=== PATIENT | female | born 1960 | race Caucasian/White ===

== ENCOUNTER 2022-02-12 01:51 | Inpatient (IN) ==
[2022-02-12] MEDS ORDERED: NARCAN IVP STA (01:55)
[2022-02-12 01:59] VITALS: BP 199/112; TEMP 97.7
[2022-02-12 02:05] LABS: BASOPHILS # (AUTO) 0.1 K/uL (0-0.2); BASOPHILS % (AUTO) 0.6 % (0.0-3.0); EOSINOPHILS % (AUTO) 0.1 % (0.0-7.0); HEMATOCRIT 43.8 % (37.0-47.0); HEMOGLOBIN 15.6 g/dl (12.0-16.0); IMMATURE GRANULOCYTE # (AUTO) 0.3 (0.0-1.0); IMMATURE GRANULOCYTE % (AUTO) 1.6 % (0.0-5.0); LYMPHOCYTES % (AUTO) 19.1 (10.0-50.0); MEAN CORPUSCULAR HEMOGLOBIN 29.9 pg (27.0-31.0); MEAN CORPUSCULAR HGB CONC 35.6 (31.8-35.4); MEAN CORPUSCULAR VOLUME 84.1 fl (81.0-99.0); MONOCYTES # (AUTO) 0.6 K/uL (0.4-2.0); MONOCYTES % (AUTO) 3.6 (0-10); NEUTROPHILS # (AUTO) 11.6 K/ul (2.0-6.9); PLATELET COUNT 261 10^3/uL (140-440); RDW COEFFICIENT OF VARIATION 13.2 % (11.6-14.8); RED BLOOD COUNT 5.21 10^6/ul (4.20-5.40); WHITE BLOOD COUNT 15.48 K/ul (4.6-10.2)
[2022-02-12 02:10] LABS: ALANINE AMINOTRANSFERASE 13.2 U/L (0-35); ALBUMIN 5.05 g/dL (3.5-5.0); ALKALINE PHOSPHATASE 115.1 U/L (53-141); ASPARTATE AMINO TRANSFERASE 29.7 U/L (14-36); BLOOD UREA NITROGEN 12.1 mg/dL (7-17); CALCIUM 8.94 mg/dL (8.4-10.2); CARBON DIOXIDE 27.7 mmol/L (22-30.0); CHLORIDE 96.9 mmol/L (98-107); CREATINE KINASE 130.8 U/L (30-135); CREATININE 0.56 mg/dL (0.60-1.30); GLUCOSE 116.6 mg/dL (74-106); POTASSIUM 3.24 mmol/L (3.5-5.1); SODIUM 136.3 mmol/L (134.5-145); TOTAL PROTEIN 8.76 g/dL (6.3-8.2)
--- NOTE | 2022-02-12 02:14 | ED.PDOC ---
General ED Provider: Dr. LYNNETTE HERNANDEZ Chief Complaint: Non-specific Complaint Stated Complaint: family reported a headache and then became unresponsive Time Seen by Provider: 02/12/22 01:53 Mode of Arrival: Ambulance Information Source: EMT Exam Limitations: Clinical condition and Altered mental status Nursing and Triage Documentation Reviewed and Agree: Yes Does patient meet sepsis criteria?: No System Inflammatory Response Syndrome: Not Applicable Sepsis Protocol: For patient's 13 years and over: Temp is 96.8 and below OR 101 and greater Pulse >90 BPM Resp >20/minute Acutely Altered Mental Status Are patient's symptoms suggestive of a new infection, such as: -Pneumonia -Skin, Soft Tissue -Endocarditis -UTI -Bone, Joint Infection -Implantable Device -Acute Abdominal Infection -Wound Infection -Meningitis -Blood Stream Catheter Infection -Unknown Neurological Complaint Exam Altered Mental Status Complaint/Exam Current Mental Status: Unresponsiveness Onset: Sudden Symptoms Are: Still present Timing: Constant Episodes Lasting: Minutes Initial Severity: Mild Current Severity: Severe Eye Deviation Present: No Character: Reports Responsiveness and Lethargy Aggravating: Reports None Alleviating: Reports None Associated Signs and Symptoms: Reports Headache Cardiac Risk Factors: Reports None Carotid Bruit Present: No Nystagmus Present: No Gag Reflex Present: No Meningeal Signs Positive: No Focal Weakness: Present None Focal Sensory Loss: Present None Gait: Unable Heel to Toe Normal: No Signs of Injury: Present Normal findings Thrombolytics Considered: No Differential Diagnoses: Intracranial Bleed and CVA Review of Systems Review Of Systems Constitutional: Reports No symptoms Eyes: Reports No symptoms Ears, Nose, Mouth, Throat: Reports No symptoms Respiratory: Reports No symptoms Cardiac: Reports No symptoms GI: Reports No symptoms : Reports No symptoms Musculoskeletal: Reports No symptoms Skin: Reports No symptoms Neurological: Reports Cognitive dysfunction, Unable to move lower ext and Unable to move upper ext Endocrine: Reports No symptoms Hematologic/Lymphatic: Reports No symptoms All Other Systems: Reviewed and Negative Physical Exam Physical Exam Appearance: Reports Other Ill-appearing: Moderate Pain Distress: None Eyes: Reports Right pupil size and Left pupil size ENT: Reports Ears normal, Nose normal and Oropharynx normal Neck: Supple Respiratory: Reports Airway patent, Breath sounds clear and Breath sounds equal Cardiovascular: Reports RRR, Pulses normal, No rub and No murmur GI/: Reports Soft, Nontender and No masses Musculoskeletal: Reports Not Examined Skin: Reports Warm, Dry and Normal color Neurological: Reports Unresponsive Psychiatric: Reports Not Examined Interpretation Radiology Interpretation Radiology Interpretation By: Radiologist Radiology Results: Positive Exam Interpreted: CT Scan Procedures Intubation Indication: Present Altered Mental Status and Airway Protection Time of Intubation: 02:07 Type of Tube Used: Endotracheal Tube Size: 7.0 Cricoid Pressure Used: Yes Tube Burk Used: Yes Number of Attempts: 3 Suction Used: Yes Glidescope Used: Yes CO2 Detector Used: Yes Lung Sounds Equal Bilaterally: Yes Intubation Complications: Present No complications Tube Inserted By: r wientes Tube Placement Verified by X-ray: Yes Critical Care Note Critical Care Note Total Critical Care Time (mins): 30 Course Course Hematology/Chemistry: 02/12/22 01:50 02/12/22 01:50 Orders, Labs, Meds: Lab Review 02/12/22 02/12/22 02/12/22 01:50 01:50 01:50 WBC 15.48 H RBC 5.21 Hgb 15.6 Hct 43.8 MCV 84.1 MCH 29.9 MCHC 35.6 H RDW Coeff of Hermilo 13.2 Plt Count 261 Immature Gran % (Auto) 1.6 Neut % (Auto) 75.0 Lymph % (Auto) 19.1 [place] % (Auto) 3.6 Eos % (Auto) 0.1 Baso % (Auto) 0.6 Neut # (Auto) 11.6 H Lymph # (Auto) 3.0 [place] # (Auto) 0.6 Eos # (Auto) 0.0 Baso # (Auto) 0.1 Immature Gran # (Auto) 0.3 PT 11.1 H INR 1.07 Puncture Site Base Excess O2 Saturation ABG pH ABG pCO2 ABG pO2 ABG HCO3 ABG Total CO2 Yan Test Hemoglobin Oxyhemoglobin Carboxyhemoglobin Total Hemoglobin O2 Delivery Device Oxygen Liter Flow FiO2 % Sodium 136.3 Potassium 3.24 L Chloride 96.9 L Carbon Dioxide 27.7 Anion Gap 14.94 BUN 12.1 Creatinine 0.56 L Estimated GFR (MDRD) 110.00 BUN/Creatinine Ratio 21.60 Glucose 116.6 H Calcium 8.94 Total Bilirubin 1.20 AST 29.7 ALT 13.2 Alkaline Phosphatase 115.1 Total Creatine Kinase 130.8 CK-MB (CK-2) 3.030 H CK-MB (CK-2) % 2.3100 Troponin I < 0.012 Total Protein 8.76 H Albumin 5.05 H Globulin 3.71 Albumin/Globulin Ratio 1.36 Urine Color Urine Clarity Urine pH Ur Specific Reeves Urine Protein Urine Glucose (UA) Urine Ketones Urine Blood Urine Nitrite Urine Bilirubin Urine Urobilinogen Ur Leukocyte Esterase Urine Microscopic RBC Ur Squamous Epith Cells Amorphous Sediment Urine Bacteria Urine Opiates Screen Ur Oxycodone Screen Urine Methadone Screen Ur Propoxyphene Screen Ur Barbiturates Screen U Tricyclic Antidepress Ur Phencyclidine Scrn Ur Amphetamine Screen U Methamphetamines Scrn U Benzodiazepines Scrn Urine Cocaine Screen U Cannabinoids Screen Adenovirus (PCR) B. pertussis DNA (PCR) B.parapertussis DNA PCR C. pneumoniae DNA (PCR) Coronavirus OC43 (PCR) Coronavirus HKU1 (PCR) Coronavirus 229E (PCR) Coronavirus NL63 (PCR) Human Metapneumovir PCR Influenza Type A (PCR) Influenza B (RT-PCR) M. pneumoniae (PCR) Parainfluenza 1 (PCR) Parainfluenza 2 (PCR) Parainfluenza 3 (PCR) Parainfluenza 4 (PCR) RSV (PCR) Entero/Rhino (PCR) SARS-CoV-2 (PCR) 02/12/22 02/12/22 02/12/22 02:15 02:50 03:20 WBC RBC Hgb Hct MCV MCH MCHC RDW Coeff of Hermilo Plt Count Immature Gran % (Auto) Neut % (Auto) Lymph % (Auto) [place] % (Auto) Eos % (Auto) Baso % (Auto) Neut # (Auto) Lymph # (Auto) [place] # (Auto) Eos # (Auto) Baso # (Auto) Immature Gran # (Auto) PT INR Puncture Site Rb Base Excess -1.6 O2 Saturation 100.0 H ABG pH 7.33 L ABG pCO2 46.0 H ABG pO2 503.0 H ABG HCO3 24.3 ABG Total CO2 25.7 H Yan Test + Hemoglobin 1.5 Oxyhemoglobin 94.9 L Carboxyhemoglobin 3.8 H Total Hemoglobin 16.1 O2 Delivery Device Ambu Oxygen Liter Flow 15.00 FiO2 % 100.0 Sodium Potassium Chloride Carbon Dioxide Anion Gap BUN Creatinine Estimated GFR (MDRD) BUN/Creatinine Ratio Glucose Calcium Total Bilirubin AST ALT Alkaline Phosphatase Total Creatine Kinase CK-MB (CK-2) CK-MB (CK-2) % Troponin I Total Protein Albumin Globulin Albumin/Globulin Ratio Urine Color Yellow Urine Clarity Slightly Urine pH 7.5 Ur Specific Reeves 1.020 Urine Protein Trace H Urine Glucose (UA) Negative Urine Ketones Negative Urine Blood 3+ H Urine Nitrite Negative Urine Bilirubin Negative Urine Urobilinogen 0.2 Ur Leukocyte Esterase Negative Urine Microscopic RBC 10-20 Ur Squamous Epith Cells Not present Amorphous Sediment Trace Urine Bacteria 3+ Urine Opiates Screen Ur Oxycodone Screen Urine Methadone Screen Ur Propoxyphene Screen Ur Barbiturates Screen U Tricyclic Antidepress Ur Phencyclidine Scrn Ur Amphetamine Screen U Methamphetamines Scrn U Benzodiazepines Scrn Urine Cocaine Screen U Cannabinoids Screen Adenovirus (PCR) Not detected B. pertussis DNA (PCR) Not detected B.parapertussis DNA PCR Not detected C. pneumoniae DNA (PCR) Not detected Coronavirus OC43 (PCR) Not detected Coronavirus HKU1 (PCR) Not detected Coronavirus 229E (PCR) Not detected Coronavirus NL63 (PCR) Not detected Human Metapneumovir PCR Not detected Influenza Type A (PCR) Not detected Influenza B (RT-PCR) Not detected M. pneumoniae (PCR) Not detected Parainfluenza 1 (PCR) Not detected Parainfluenza 2 (PCR) Not detected Parainfluenza 3 (PCR) Not detected Parainfluenza 4 (PCR) Not detected RSV (PCR) Not detected Entero/Rhino (PCR) Not detected SARS-CoV-2 (PCR) Not detected 02/12/22 03:20 WBC RBC Hgb Hct MCV MCH MCHC RDW Coeff of Hermilo Plt Count Immature Gran % (Auto) Neut % (Auto) Lymph % (Auto) [place] % (Auto) Eos % (Auto) Baso % (Auto) Neut # (Auto) Lymph # (Auto) [place] # (Auto) Eos # (Auto) Baso # (Auto) Immature Gran # (Auto) PT INR Puncture Site Base Excess O2 Saturation ABG pH ABG pCO2 ABG pO2 ABG HCO3 ABG Total CO2 Yan Test Hemoglobin Oxyhemoglobin Carboxyhemoglobin Total Hemoglobin O2 Delivery Device Oxygen Liter Flow FiO2 % Sodium Potassium Chloride Carbon Dioxide Anion Gap BUN Creatinine Estimated GFR (MDRD) BUN/Creatinine Ratio Glucose Calcium Total Bilirubin AST ALT Alkaline Phosphatase Total Creatine Kinase CK-MB (CK-2) CK-MB (CK-2) % Troponin I Total Protein Albumin Globulin Albumin/Globulin Ratio Urine Color Urine Clarity Urine pH Ur Specific Reeves Urine Protein Urine Glucose (UA) Urine Ketones Urine Blood Urine Nitrite Urine Bilirubin Urine Urobilinogen Ur Leukocyte Esterase Urine Microscopic RBC Ur Squamous Epith Cells Amorphous Sediment Urine Bacteria Urine Opiates Screen Negative Ur Oxycodone Screen Negative Urine Methadone Screen Negative Ur Propoxyphene Screen Negative Ur Barbiturates Screen Negative U Tricyclic Antidepress Negative Ur Phencyclidine Scrn Negative Ur Amphetamine Screen Positive H U Methamphetamines Scrn Positive H U Benzodiazepines Scrn Negative Urine Cocaine Screen Negative U Cannabinoids Screen Negative Adenovirus (PCR) B. pertussis DNA (PCR) B.parapertussis DNA PCR C. pneumoniae DNA (PCR) Coronavirus OC43 (PCR) Coronavirus HKU1 (PCR) Coronavirus 229E (PCR) Coronavirus NL63 (PCR) Human Metapneumovir PCR Influenza Type A (PCR) Influenza B (RT-PCR) M. pneumoniae (PCR) Parainfluenza 1 (PCR) Parainfluenza 2 (PCR) Parainfluenza 3 (PCR) Parainfluenza 4 (PCR) RSV (PCR) Entero/Rhino (PCR) SARS-CoV-2 (PCR) Orders Category Date Time Status ABG DRAW REQUEST DAILY@0600 CARDIO 02/13/22 06:00 Ordered ABG DRAW REQUEST DAILY@0600 CARDIO 02/14/22 06:00 Ordered ABG DRAW REQUEST DAILY@0600 CARDIO 02/15/22 06:00 Ordered ABG DRAW REQUEST Stat CARDIO 02/12/22 02:17 Completed SPUTUM INDUCTION Q3D CARDIO 02/15/22 06:00 Ordered SPUTUM INDUCTION Q3D CARDIO 02/18/22 06:00 Ordered SPUTUM INDUCTION Routine CARDIO 02/12/22 23:59 Ordered VENTILATOR Routine CARDIO 02/12/22 02:38 Ordered ED IV/MEDIPORT/POWERPORT .ONCE EMERGENCY 02/12/22 01:53 Active Delarosa [ED CATHETER INSERTION AND CARE] .ONCE EMERGENCY 02/12/22 02:29 Active ABG COOX DAILY@0600 LAB 02/12/22 06:00 Ordered ABG COOX DAILY@0600 LAB 02/13/22 06:00 Ordered ABG COOX DAILY@0600 LAB 02/14/22 06:00 Ordered ABG COOX DAILY@0600 LAB 02/15/22 06:00 Ordered ABG COOX Stat LAB 02/12/22 02:15 Completed ABG COOX Stat LAB 02/12/22 23:59 Ordered CBC W/ AUTO DIFF Stat LAB 02/12/22 01:50 Completed CMP [COMPREHENSIVE METABOLIC PANEL] Stat LAB 02/12/22 01:50 Completed CREATINE KINASE Stat LAB 02/12/22 01:50 Completed PT WITH INR Stat LAB 02/12/22 01:50 Completed RESPIRATORY PANEL 2.1 (PCR) Stat LAB 02/12/22 02:50 Completed SPUTUM CULTURE Q3D LAB 02/15/22 06:00 Ordered SPUTUM CULTURE Q3D LAB 02/18/22 06:00 Ordered SPUTUM CULTURE Routine LAB 02/12/22 02:38 Ordered TROPONIN I Stat LAB 02/12/22 01:50 Completed URINALYSIS C & S IF INDICATED Stat LAB 02/12/22 03:20 Completed URINE CULTURE Stat LAB 02/12/22 03:20 Received URINE DRUG SCREEN (RAPID FOR ED) [DRUG SCREEN, URINE, LAB 02/12/22 03:20 Completed RAPID] Stat 0.9 % Sodium Chloride [Saline Flush] MEDS 02/12/22 01:53 Active 1 syr IVF PRN PRN Lidocaine (Uro-Jet) [Uro-Jet] MEDS 02/12/22 02:29 Discontinued 10 ml [id number] ONCE STA Naloxone HCl [Narcan] MEDS 02/12/22 01:55 Discontinued 2 mg IVP ONCE STA CHEST, 1V AP ONLY DAILY@0700 RADS 02/12/22 07:00 Ordered CHEST, 1V AP ONLY DAILY@0700 RADS 02/13/22 07:00 Ordered CHEST, 1V AP ONLY DAILY@0700 RADS 02/14/22 07:00 Ordered CHEST, 1V AP ONLY DAILY@0700 RADS 02/15/22 07:00 Ordered CHEST, 1V AP ONLY DAILY@0700 RADS 02/16/22 07:00 Ordered CHEST, 1V AP ONLY Stat RADS 02/12/22 02:[address] HEAD W/O CONTRAST Stat RADS 02/12/22 01:53 Completed CXR [CHEST, 1V AP ONLY] Stat RADS 02/12/22 01:53 Completed Medications Generic Name Dose Route Start Last Admin Trade Name Freq PRN Reason Stop Dose Admin Sodium Chloride 1 syr 02/12/22 01:53 0.9% Sodium Chloride 10 Ml Disp.Syrin IVF PRN PRN To flush IV Discontinued Medications Generic Name Dose Route Start Last Admin Trade Name Freq PRN Reason Stop Dose Admin Lidocaine HCl 10 ml 02/12/22 02:29 02/12/22 03:50 Lidocaine 10 Ml Jel.Pf.Janelle (Urojet) MUCOUSMEMB 02/12/22 02:30 Not Given ONCE STA Naloxone HCl 2 mg 02/12/22 01:55 02/12/22 01:56 Naloxone Hcl 2 Mg/2 Ml Disp.Syrin IVP 02/12/22 01:56 2 mg ONCE STA Administration Vital Signs: Temp Pulse Resp BP Pulse Ox 02/12/22 05:56 22 02/12/22 02:56 16 02/12/22 01:51 97.7 F 88 28 H 199/112 H 100 Discharge Plan Discharge Patient Disposition: ADMITTED INPATIENT Discharge Problem: Brain bleed Prescriptions: No Action Unobtainable 0RF ED Provider: LYNNETTE MONTOYA Condition: Critical Physician Progress Note: met with 2 daUGHTERS AND HER SON FROM [facility]--they are aware of poor prognosis and want only comfort and supportive measures--she will be made dnr and want extubation on the floor---they decline transfer to outside facility[]
--- NOTE | 2022-02-12 02:14 | ED.PDOC ---
Procedures - Intubation Indication: Present: Altered Mental Status Time of Intubation: 02:00 (commatose) Type of Tube Used: Endotracheal Tube Size: 7 Cricoid Pressure Used: No Tube Burk Used: Yes Position of Tube at Lip: 20cm @lips Number of Attempts: 1 Suction Used: No Glidescope Used: No CO2 Detector Used: Yes Lung Sounds Equal Bilaterally: Yes Intubation Complications: Present: No complications Tube Inserted By: Gonzalo Rivera CRNA Tube Placement Verified by X-ray: Yes Conscious Sedation - Pre-op Assessment Weight: 200 lb Surgical History: UNKNOWN - Medical History Past Medical History: Unknown
[2022-02-12 02:21] LABS: ABG O2 HGB 94.9 % (95-100); ABG PH 7.33 (7.35-7.45); BEecf -1.6 (-2.0-3.0); COHb 3.8 (0.5-1.5); HCO3 24.3 (21-28); MetHb 1.5 (0-1.5); TCO2 25.7 (19-24); tHb 16.1 g/dl (11.7-17.4)
[2022-02-12 02:22] LABS: TROPONIN I < 0.012 ng/ml (0.0000-0.120)
[2022-02-12 02:26] LABS: PROTHROMBIN TIME 11.1 SEC (9.3-11.0)
[2022-02-12] MEDS ORDERED: URO-JET MUCOUSMEMB STA (02:29)
--- NOTE | 2022-02-12 02:37 | DI ---
EXAM: Portable chest HISTORY: Tube placement COMPARISON: None. FINDINGS: / impression The heart is normal in size. Atherosclerotic changes are seen involving the aortic arch.. Endotracheal tube is in good position above the lc. There is no focal consolidati on or effusion.
--- NOTE | 2022-02-12 03:02 | CT ---
EXAM: CT brain without contrast HISTORY: Mental status change TECHNIQUE: CT of the brain without intravenous contrast. FINDINGS: Right cerebellar hematoma with intraventricular rupture. Hematoma measuring 4.1 x 3.3 x 3 .0 cm. Cerebellar midline shift is present but difficult to measure possibly up to 1.5 cm. Dilated l ateral ventricles are present. Intraventricular blood product is present. Questionable hematoma of t he right thalamus measuring 0.5 x 1.0 cm versus adjacent cisternal blood product. The bony cranium a ppears normal. The visualized paranasal sinuses are clear. Soft tissues without significant abnormal ity. IMPRESSION: 1. Critical result: Large right cerebellar hematoma with intraventricular rupture. Cerebellar midl ine shift is present. 2. Dilated lateral ventricles with effacement of basilar cisterns and diffuse sulcal effacement. 3. Question right thalamic hematoma versus adjacent intraventricular hematoma. The findings were discussed with ordering physician at [address] All [address] scans are performed using dose optimization techniques as appropriate to the performed exam an d include at least one of the following: Automated exposure control, adjustment of the mA and/or kV according t o size, and the use of iterative reconstruction technique.
[2022-02-12 03:18] LABS: BORDETELLA PARAPERTUSSIS (PCR) NOT DETECTED (NOT DETECT); BORDETELLA PERTUSSIS (PCR) NOT DETECTED (NOT DETECT); CHLAMYDIA PNEUMONIAE (PCR) NOT DETECTED (NOT DETECT); CORONAVIRUS 229E (PCR) NOT DETECTED (NOT DETECT); CORONAVIRUS HKU1 (PCR) NOT DETECTED (NOT DETECT); CORONAVIRUS NL63 (PCR) NOT DETECTED (NOT DETECT); CORONAVIRUS OC43 (PCR) NOT DETECTED (NOT DETECT); HUMAN METAPNEUMOVIRUS (PCR) NOT DETECTED (NOT DETECT); HUMAN RHINOVIRUS/ENTEROV (PCR) NOT DETECTED (NOT DETECT); INFLUENZA B (PCR) NOT DETECTED (NOT DETECT); MYCOPLASMA PNEUMONIAE (PCR) NOT DETECTED (NOT DETECT); PARAINFLUENZA VIRUS 1 (PCR) NOT DETECTED (NOT DETECT); PARAINFLUENZA VIRUS 2 (PCR) NOT DETECTED (NOT DETECT); PARAINFLUENZA VIRUS 3 (PCR) NOT DETECTED (NOT DETECT); PARAINFLUENZA VIRUS 4 (PCR) NOT DETECTED (NOT DETECT); RESPIRATORY SYNCYTIAL V (PCR) NOT DETECTED (NOT DETECT); SARS_COV_2 (PCR) NOT DETECTED (NOT DETECT)
[2022-02-12 03:34] LABS: BILIRUBIN,URINE Negative (NEGATIVE); CLARITY,URINE Slightly (CLEAR); COLOR,URINE Yellow (YELLOW); GLUCOSE, URINE (UA) Negative (NEGATIVE); KETONES,URINE Negative (NEGATIVE); LEUKOCYTE ESTERASE ,URINE Negative (NEGATIVE); NITRITE,URINE Negative (NEGATIVE); PH,URINE 7.5 (5-9); PROTEIN,URINE Trace (NEGATIVE); URINE, BLOOD 3+ (NEGATIVE); UROBILINOGEN,URINE 0.2 (0.2)
[2022-02-12 03:41] LABS: AMORPHOUS SEDIMENT,UR TRACE (NOT PRESENT); BACTERIA,URINE 3+ (NOT PRESENT); SQUAMOUS EPITHELIAL CELL,UR NOT PRESENT (0-5)
[2022-02-12 03:47] LABS: AMPHETAMINE SCREEN,URINE POSITIVE (NEGATIVE); BARBITURATE SCREEN,URINE NEGATIVE (NEGATIVE); BENZODIAZEPINES SCREEN,URINE NEGATIVE (NEGATIVE); CANNABINOID SCREEN,URINE NEGATIVE (NEGATIVE); COCAIN SCREEN,URINE NEGATIVE (NEGATIVE); METHADONE URINE SCREEN NEGATIVE (NEGATIVE); METHAMPHETAMINES SCREEN,URINE POSITIVE (NEGATIVE); OPIATE SCREEN,URINE NEGATIVE (NEGATIVE); OXYCODONE URINE SCREEN NEGATIVE (NEGATIVE); PHENCYCLIDINE SCREEN,URINE NEGATIVE (NEGATIVE); PROPOXYPHENE URINE SCREEN NEGATIVE (NEGATIVE); TRICYCLIC ANTIDEPRESSANTS URIN NEGATIVE (NEGATIVE)
[2022-02-12 03:52] LABS: ADENOVIRUS (PCR) NOT DETECTED (NOT DETECT)
[2022-02-12] MEDS ORDERED: ATIVAN IVP PRN (06:26)
[2022-02-12] MEDS ORDERED: MORPHINE 2 MG/ML VIAL IVP PRN (06:26)
[2022-02-12 08:16] VITALS: BMI 24.0
--- NOTE | 2022-02-13 03:18 | PCM.PROG ---
Time of : 09:32 Preliminary Cause of : Brain hemorrhage
== END 2022-02-12 09:32 | disposition expired | DRG 66 ==
LOC: ED 01:51 → MEDSURG A 06:44
PROVIDERS: ADMIT Family Medicine; ATTEND Emergency Medicine
DX: Z74.3 Need for continuous supervision; R41.82 Altered mental status, unspecified; I61.9 Nontraumatic intracerebral hemorrhage, unspecified; Z20.822 Contact with and (suspected) exposure to COVID-19